=== PATIENT | female | born 1995 ===

== ENCOUNTER 2017-03-15 20:09 | Observation (INO) | payer OTHER ==
--- NOTE | 2017-03-15 21:24 | ED PDOC ---
HPI: Female Pain Time Seen by Provider: 03/15/17 21:05 Chief Complaint (Nursing): Female Genitourinary Chief Complaint (Provider): : vaginal bleeding History Per: Patient History/Exam Limitations: no limitations Onset/Duration Of Symptoms: Days (5) Current Symptoms Are (Timing): Better Quality Of Discomfort: Cramping Associated Symptoms: Nausea Additional History Per: Patient Additional Complaint(s): 22 y/o female, approx 6 weeks gestation presents with vaginal spotting x 5 days. Patient states she had positive test 03/06, went to [facility] 03/09 and one day later began having vaginal bleeding with clots. Patient states since then bleeding has lessened, today just spotting. Patient also notes nausea with intermittent vomiting episodes. Denies fever, chest pain , shortness of breath, palpitations, changes in bowel movements, dysuria, hematuria, vaginal discharge. Abnormal Vaginal Bleeding: Yes Last Menstral Period: 02/03/17 : 1 Para: 0 Miscarriage: 0 Past Medical History Reviewed: Historical Data, Nursing Documentation, Vital Signs Vital Signs: Last Vital Signs Temp 98.5 F 03/15/17 20:59 Pulse 94 H 03/15/17 20:59 Resp 16 03/15/17 20:59 BP 157/77 H 03/15/17 20:59 Pulse Ox 99 03/15/17 20:59 - Medical History PMH: No Chronic Diseases - Surgical History Surgical History: No Surg Hx - Family History Family History: States: Unknown Family Hx - Living Arrangements Living Arrangements: With Family - Immunization History Hx Tetanus Toxoid Vaccination: No Hx Influenza Vaccination: No Hx Pneumococcal Vaccination: No - Home Medications Home Medications: Ambulatory Orders Medication Instructions Recorded Amoxicillin [Amoxil] 500 mg PO Q12 #20 cap 02/16/15 Prednisone 50 mg PO DAILY #5 tab 02/16/15 Tobramycin [Tobramycin 5 ml] 1 drop TOP ASDIR #1 bottle 05/25/15 Metaxalone [Skelaxin] 800 mg PO TID PRN #15 tablet 02/29/16 traMADol [Ultram] 50 mg PO TID PRN #10 tab 02/29/16 - Allergies Allergies/Adverse Reactions: Allergies Allergy/AdvReac Type Severity Reaction Status Date / Time No Known Allergies Allergy Verified 02/16/15 16:35 Review of Systems ROS Statement: Except As Marked, All Systems Reviewed And Found Negative Genitourinary Female: Positive for: Vaginal Bleeding, Pelvic Pain Physical Exam - Reviewed Nursing Documentation Reviewed: Yes Vital Signs Reviewed: Yes - Physical Exam Appears: Positive for: Well, Non-toxic, No Acute Distress Head Exam: Positive for: ATRAUMATIC, NORMAL INSPECTION, NORMOCEPHALIC Skin: Positive for: Normal Color Eye Exam: Positive for: Normal appearance ENT: Positive for: Normal ENT Inspection Cardiovascular/Chest: Positive for: Regular Rate, Rhythm Respiratory: Positive for: Normal Breath Sounds Gastrointestinal/Abdominal: Positive for: Bowel Sounds, Soft, Tenderness (right pelvic, suprapubic discomfort). Negative for: Distended, Rebound Pelvic Exam: Positive for: External Exam Normal, No Cerv. Motion Tender, Other ( exam chaperoned by Deanna copier technician). Negative for: Active Bleeding Back: Positive for: Normal Inspection Extremity: Positive for: Normal ROM Neurologic/Psych: Positive for: Alert, Oriented - Laboratory Results Result Diagrams: 03/15/17 20:34 03/15/17 21:38 Urine POC: Positive Urine dip results: Negative for: Leukocyte Esterase, Blood, Nitrate, Ketones, Glucose - ECG O2 Sat by Pulse Oximetry: 99 ED OBSERVATION Discharge: Yes Date of observation admission: 03/15/17 Time of observation admission: 22:36 - Observation admission statement Patient is being placed in observation because:: vaginal bleeding in - Goals of Observation Goals of observation are:: obtain transvaginal u/s - Progress Note Progress Note: 03/15/17 22:36 patient resting comfortably 03/16/17 00:00 Patient resting comfortably 1:30 Patient resting comfortably 2:15 EXAM: US , Transvaginal CLINICAL HISTORY: 22 years old, female; Signs and symptoms; Lmp or gestational age (in weeks): See us ws; Antepartum complications; Bleeding; ; Additional info: , vaginal bleeding. Beta hCG measures 27,955 TECHNIQUE: Real-time transvaginal obstetrical ultrasound of the maternal pelvis and a first trimester with image documentation. Transvaginal imaging was used for better evaluation of the fetus and adnexa. COMPARISON: No relevant prior studies available. FINDINGS: Gestation: A single intrauterine gestation is identified with a crown-rump length measuring 2.3 mm, corresponding to an approximate gestational age of 5 weeks and 5 days. The mean gestational sac size measures 15 mm, corresponding to an approximate gestational age of 5 weeks and 6 days. cardiac activity is identified at a rate of 120 beats per minute. Placenta/amniotic fluid: Cannot be adequately evaluated due to the early gestational age. Uterus/cervix: Cervix measures 3.4 cm, and is closed. Nabothian cysts are detected. No significant implantation hemorrhage is present. Ovaries: The left ovary is unremarkable in echogenicity and size measuring 2.7 x 1.8 x 2.5 cm The right ovary measures 3.3 x 2.2 x 2.5 cm. A (possible) corpus luteal cyst is identified within the right ovary, measuring 2 cm in greatest dimension. Free fluid: No free fluid. IMPRESSION: Single intrauterine gestation with an approximate gestational age of 5 weeks and 5 days. cardiac activity is identified. The cervix contains nabothian cysts in its central most portion, and is closed. Right ovarian (possible) corpus luteal cyst. Thank you for allowing us to participate in the care of your patient. 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 Return to ED for worsening/concerning symptoms. Disposition - Clinical Impression Clinical Impression: Vaginal bleeding in , Ovarian cyst - Patient ED Disposition Is Patient to be Admitted: No Counseled Patient/Family Regarding: Studies Performed, Diagnosis, Need For Followup - Disposition Disposition: Routine/Home Disposition Time: 02:16 Condition: STABLE
[2017-03-15 21:46] LABS: BASO # 0.1 K/uL (0.0-0.2); EOS # 0.2 K/uL (0.0-0.7); EOS % 2.4 % (0.0-4.0); HEMATOCRIT 32.4 % (34.0-47.0); LYMPH # 2.2 K/uL (1.0-4.3); MEAN CORPUSCULAR HEMOGLOBIN 25.8 pg (27.0-31.0); MEAN CORPUSCULAR HGB CONC 32.6 g/dL (33.0-37.0); MEAN PLATELET VOLUME 9.1 fl (7.2-11.7); MONO # 0.8 K/uL (0.0-0.8); MONO % 9.1 % (0.0-10.0); NEUT # 5.3 K/uL (1.8-7.0); NEUT % 61.5 % (50.0-75.0); RED CELL DISTRIBUTION WIDTH 14.3 % (11.5-14.5); WHITE BLOOD COUNT 8.6 K/uL (4.8-10.8)
[2017-03-15 21:59] LABS: ALB/GLOB RATIO 1.4 (1.0-2.1); ALKALINE PHOSPHATASE 77 U/L (38-126); ALT/SGPT 57 U/L (9-52); AST/SGOT 37 U/L (14-36); BILIRUBIN,TOTAL 0.5 mg/dl (0.2-1.3); BLOOD UREA NITROGEN 13 mg/dl (7-17); CALCIUM 8.9 mg/dL (8.4-10.2); CARBON DIOXIDE 22 mmol/L (22-30); CHLORIDE 103 mmol/L (98-107); GFR AFRICAN-AMERICAN > 60; GLUCOSE,RANDOM 98 mg/dL (65-105); POTASSIUM 3.6 MMOL/L (3.6-5.0); SODIUM 135 mmol/l (132-148); TOTAL PROTEIN 7.2 G/DL (6.3-8.2)
--- NOTE | 2017-03-16 02:03 | US ---
EXAM: US , Transvaginal CLINICAL HISTORY: 22 years old, female; Signs and symptoms; Lmp or gestational age (in weeks): See us ws; Antepartum complications; Bleeding; ; Additional info: , vaginal bleeding. Beta hCG measures 27,955 TECHNIQUE: Real-time transvaginal obstetrical ultrasound of the maternal pelvis and a first trimester with image documentation. Transvaginal imaging was used for better evaluation of the fetus and adnexa. COMPARISON: No relevant prior studies available. FINDINGS: Gestation: A single intrauterine gestation is identified with a crown-rump length measuring 2.3 mm, corresponding to an approximate gestational age of 5 weeks and 5 days. The mean gestational sac size measures 15 mm, corresponding to an approximate gestational age of 5 weeks and 6 days. cardiac activity is identified at a rate of 120 beats per minute. Placenta/amniotic fluid: Cannot be adequately evaluated due to the early gestational age. Uterus/cervix: Cervix measures 3.4 cm, and is closed. Nabothian cysts are detected. No significant implantation hemorrhage is present. Ovaries: The left ovary is unremarkable in echogenicity and size measuring 2.7 x 1.8 x 2.5 cm The right ovary measures 3.3 x 2.2 x 2.5 cm. A (possible) corpus luteal cyst is identified within the right ovary, measuring 2 cm in greatest dimension. Free fluid: No free fluid. IMPRESSION: Single intrauterine gestation with an approximate gestational age of 5 weeks and 5 days. cardiac activity is identified. The cervix contains nabothian cysts in its central most portion, and is closed. Right ovarian (possible) corpus luteal cyst.
[2017-03-16 03:00] VITALS: BP 132/87; PULSE 81; RESP 18; TEMP 97.8; O2SAT 100
== END 2017-03-16 02:18 | disposition home or self-care (01) ==
LOC: H.ER 20:09 → H.EROBSV 22:35
PROVIDERS: ADMIT Emergency Medicine; ATTEND Emergency Medicine
DX: O20.9 Hemorrhage in early pregnancy, unspecified (principal); Z3A.01 Less than 8 weeks gestation of pregnancy; O34.81 Maternal care for other abnormalities of pelvic organs, first trimester; N83.209 Unspecified ovarian cyst, unspecified side
CPT/HCPCS: 76817; 80053; 81025; 84702; 85025; 86850; 86900; 99283; G0378